=== PATIENT | male | born 1960 | race Caucasian/White ===

== ENCOUNTER 2016-06-30 19:06 | Inpatient (IN) | payer OTHER, SELFPAY ==
--- NOTE | ~2016-06-30 | PN ---
Unit #: [id number] #: [id number] Patient: MEMO THIBODEAUX [id number] [facility] [address] [place] [address] [id number] I MR#: [id number] NAME: MEMO THIBODEAUX. ROOM: P114 Age: 55 Sex: M Admission Date: 06/30/2016 : 1960 Attending Physician: Davidson Martins M.D. Admitting Physician: Davidson Martins M.D. Primary Care Physician: Nato Doctor Not In System [facility] PROGRESS NOTES DATE 07/20/2016 DISCUSSION The patient remains abed, disheveled, not attending to activities of daily living, not going to groups, with very poor p.o. intake, and severely dysphoric mood. He continues to exhibit paucity of speech and thought-blocking. The patient does list an allergy to Prozac. This medication will therefore be discontinued, and instead the patient begun on Wellbutrin to augment Zyprexa and escitalopram which are already in place. Dictated by... Davidson Martins M.D. CB/teodoro TD: 07/20/2016 14:26 JOB #: [id number] [facility] PROGRESS NOTES Page 1 of 1 X Davidson Martins MD PROGRESS NOTE
--- NOTE | ~2016-06-30 | PN ---
Unit #: [id number] #: [id number] Patient: MEMO THIBODEAUX [id number] [facility] [address] [place] [address] [id number] I MR#: [id number] NAME: MEMO THIBODEAUX. ROOM: P114 Age: 55 Sex: M Admission Date: 06/30/2016 : 1960 Attending Physician: Davidson Martins M.D. Admitting Physician: Davidson Martins M.D. Primary Care Physician: Generic Doctor Not In System [facility] PROGRESS NOTES DATE 07/15/2016 DISCUSSION The patient continues to appear very flat and disheveled but rates his mood as a "6" today and states to this physician "I'm going to kill myself." It is my feeling that he may have reached maximum benefit from inpatient psychiatric care, and we may be moving towards discharge within the next couple of days. Dictated by... Davidson Martins M.D. CB/bzg TD: 07/15/2016 15:07 JOB #: [id number] [facility] PROGRESS NOTES X Davidson Martins MD PROGRESS NOTE
--- NOTE | ~2016-06-30 | PN ---
Unit #: [id number] #: [id number] Patient: MEMO THIBODEAUX [id number] [facility] [address] [place] [address] [id number] I MR#: [id number] NAME: MEMO THIBODEAUX. ROOM: P114 Age: 55 Sex: M Admission Date: 06/30/2016 : 1960 Attending Physician: Davidson Martins M.D. Admitting Physician: Davidson Martins M.D. Primary Care Physician: Generic Doctor Not In System [facility] PROGRESS NOTES DATE 07/10/2016 DISCUSSION The patient seems a bit brighter today. He is more active within the therapeutic milieu and is more verbal in interaction with this physician, although he remains quite flat with impoverishment of speech. Perhaps this is an early sign of some improvement, however. Dictated by... Davidson Martins M.D. CB/shawna TD: 07/10/2016 16:30 JOB #: [id number] [facility] PROGRESS NOTES X Davidson Martins MD PROGRESS NOTE
--- NOTE | ~2016-06-30 | PN ---
Unit #: [id number] #: [id number] Patient: MEMO THIBODEAUX [id number] [facility] [address] [place] [address] [id number] I MR#: [id number] NAME: MEMO THIBODEAUX. ROOM: P114 Age: 55 Sex: M Admission Date: 06/30/2016 : 1960 Attending Physician: Davidson Martins M.D. Admitting Physician: Davidson Martins M.D. Primary Care Physician: Generic Doctor Not In System [facility] PROGRESS NOTES DATE OF SERVICE 07/16/2016 DISCUSSION The patient remains tremendously depressed, disorganized in his thinking, dysphoric, flat, and continues to express hopelessness. At this point, it is my feeling that we are obligated to consult with Dr. Tipton to see if he feels as though the patient could benefit from electroconvulsive therapy. The patient is virtually unable to process any information in his current state of disorganization. Dictated by... Davidson Martins M.D. CB/teodoro TD: 07/17/2016 09:20 JOB #: [id number] [facility] PROGRESS NOTES X Davidson Martins MD PROGRESS NOTE
--- NOTE | ~2016-06-30 | PN ---
Unit #: [id number] #: [id number] Patient: MEMO THIBODEAUX [id number] [facility] [address] [place] [address] [id number] I MR#: [id number] NAME: MEMO THIBODEAUX. ROOM: P114 Age: 55 Sex: M Admission Date: 06/30/2016 : 1960 Attending Physician: Davidson Martins M.D. Admitting Physician: Davidson Martins M.D. Primary Care Physician: Generic Doctor Not In System [facility] PROGRESS NOTES DATE 07/08/2016 DISCUSSION The patient is out of his room and does speak to this physician today stating that he is "ready to go home." In spite of this, he remains bizarre in his interactions with peers and staff and has been occasionally violent. I have increased the Seroquel to 50 mg t.i.d. and as per recommendation of family we will watch the patient for med cheeking. Dictated by... Davidson Martins M.D. CB/teodoro TD: 07/08/2016 14:53 JOB #: [id number] [facility] PROGRESS NOTES X Davidson Martins MD PROGRESS NOTE
--- NOTE | ~2016-06-30 | PN ---
Unit #: [id number] #: [id number] Patient: MEMO THIBODEAUX [id number] [facility] [address] [place] [address] [id number] I MR#: [id number] NAME: MEMO THIBODEAUX. ROOM: P114 Age: 55 Sex: M Admission Date: 06/30/2016 : 1960 Attending Physician: Davidson Martins M.D. Admitting Physician: Davidson Martins M.D. Primary Care Physician: Generic Doctor Not In System [facility] PROGRESS NOTES DATE 07/09/2016 DISCUSSION The patient is abed today sleeping soundly. There is concern on the part of this physician that his titration of Seroquel may have been too rapid and back titration may need to be considered. The patient remains so sedated. Staff reports that he has been generally compliant with meds and mendiola routine but remains bizarre in his interactions with peers and staff. Dictated by... Davidson Martins M.D. CB/shawna TD: 07/09/2016 16:42 JOB #: [id number] [facility] PROGRESS NOTES X Davidson Martins MD PROGRESS NOTE
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
--- NOTE | ~2016-06-30 | PN ---
Unit #: [id number] #: [id number] Patient: MEMO THIBODEAUX [id number] [facility] [address] [place] [address] [id number] I MR#: [id number] NAME: MEMO THIBODEAUX. ROOM: P114 Age: 55 Sex: M Admission Date: 06/30/2016 : 1960 Attending Physician: Davidson Martins M.D. Admitting Physician: Davidson Martins M.D. Primary Care Physician: Generic Doctor Not In System [facility] PROGRESS NOTES DATE 07/03/2016 DISCUSSION The patient remains virtually mute during attempted interview today stating only that he is "sick." Again, I have spoken with the patient regarding the importance of increased verbal interaction as well as interaction within therapeutic milieu. She remains seclusive to room and may need to consider room lockout as the patient remains secluded in his private room. Dictated by... Davidson Martins M.D. CB/teodoro TD: 07/03/2016 12:55 JOB #: [id number] [facility] PROGRESS NOTES X Davidson Martins MD PROGRESS NOTE
--- NOTE | ~2016-06-30 | PN ---
Unit #: [id number] #: [id number] Patient: MEMO THIBODEAUX [id number] [facility] [address] [place] [address] [id number] I MR#: [id number] NAME: MEMO THIBODEAUX. ROOM: P114 Age: 55 Sex: M Admission Date: 06/30/2016 : 1960 Attending Physician: Davidson Martins M.D. Admitting Physician: Davidson Martins M.D. Primary Care Physician: Nato Doctor Not In System [facility] PROGRESS NOTES DATE 07/04/2016 DISCUSSION The patient is abed today and again mute during attempted interview. 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 I will discontinue this medication and in its place begin Mirapex 0.25 mg twice daily to address bipolar depression. Dictated by... Davidson Martins M.D. CB/olivia TD: 07/05/2016 04:04 JOB #: [id number] [facility] PROGRESS NOTES X Davidson Martins MD PROGRESS NOTE
--- NOTE | ~2016-06-30 | PN ---
Unit #: [id number] #: [id number] Patient: MEMO THIBODEAUX [id number] [facility] [address] [place] [address] [id number] I MR#: [id number] NAME: MEMO THIBODEAUX. ROOM: P114 Age: 55 Sex: M Admission Date: 06/30/2016 : 1960 Attending Physician: Davidson Martins M.D. Admitting Physician: Davidson Martins M.D. Primary Care Physician: Generic Doctor Not In System [facility] PROGRESS NOTES DATE 07/21/2016 DISCUSSION The patient at last begins to show perhaps a bit of response to initiation of Wellbutrin and Zyprexa. He is a tat brighter today, more verbal, but remains very very flat, but he is active within the therapeutic milieu and has emerged from his state of semi-catatonia. Dictated by... Davidson Martins M.D. CB/bzg TD: 07/21/2016 14:38 JOB #: [id number] [facility] PROGRESS NOTES Page 1 of 1 X Davidson Martins MD X PROGRESS NOTE
--- NOTE | ~2016-06-30 | PN ---
Unit #: [id number] #: [id number] Patient: MEMO THIBODEAUX [id number] [facility] [address] [place] [address] [id number] I MR#: [id number] NAME: MEMO THIBODEAUX. ROOM: P114 Age: 55 Sex: M Admission Date: 06/30/2016 : 1960 Attending Physician: Davidson Martins M.D. Admitting Physician: Davidson Martins M.D. Primary Care Physician: Generic Doctor Not In System [facility] PROGRESS NOTES DATE 07/26/2016 DISCUSSION The patient's slow but steady (1)__ improvement seems to be continuing. He is brighter today and reporting reduced suicidal ideation. He is more verbal than this physician has seen during his previous hospitalization and is more attending to activities of daily living. His progress is encouraging. Dictated by... Davidson Martins M.D. CB/olivia TD: 07/27/2016 00:46 JOB #: [id number] [facility] PROGRESS NOTES Page 1 of 1 X Davidson Martins MD PROGRESS NOTE
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
--- NOTE | ~2016-06-30 | PN ---
Unit #: [id number] #: [id number] Patient: MEMO THIBODEAUX [id number] [facility] [address] [place] [address] [id number] I MR#: [id number] NAME: MEMO THIBODEAUX. ROOM: P114 Age: 55 Sex: M Admission Date: 06/30/2016 : 1960 Attending Physician: Davidson Martins M.D. Admitting Physician: Davidson Martins M.D. Primary Care Physician: Generic Doctor Not In System [facility] PROGRESS NOTES DATE 07/17/2016 DISCUSSION The patient is abed today. He is extremely flat with impoverishment of speech and thought blocking evident. I have spoken with the patient today regarding possible initiation of electroconvulsive therapy. At this point, the patient is hesitant to consider this treatment plan but I will continue to discuss it with him as of this point. He is exhibiting little in the way of response to his aggressive pharmacotherapy. Dictated by... Davidson Martins M.D. CB/shawna TD: 07/17/2016 15:01 JOB #: [id number] [facility] PROGRESS NOTES X Davidson Martins MD PROGRESS NOTE
--- NOTE | ~2016-06-30 | PN ---
Unit #: [id number] #: [id number] Patient: MEMO THIBODEAUX [id number] [facility] [address] [place] [address] [id number] I MR#: [id number] NAME: MEMO THIBODEAUX. ROOM: P114 Age: 55 Sex: M Admission Date: 06/30/2016 : 1960 Attending Physician: Davidson Martins M.D. Admitting Physician: Davidson Martins M.D. Primary Care Physician: Nato Doctor Not In System [facility] PROGRESS NOTES DATE 07/19/2016 DISCUSSION The patient is once again noted to be abed with significant thought blocking. He is disheveled, not attending to activities of daily living, not leaving his room, not going to groups. He has refused to even discuss ECT with Dr. Tipton. Clearly the pharmacotherapeutic interventions undertaken this far, i.e. continuation of Latuda, initiation of Mirapex and then Seroquel have been entirely unsuccessful and the patient is not willing to consider electroconvulsive therapy. He remains previously dangerous to himself secondary to his severely depressed mood, thought blocking and reduced p.o. intake and reduction of activities of daily living and continues to state only to answer only monosyllabically to selecting questions. We will discontinue Seroquel and Mirapex today and begin a trial of olanzapine and fluoxetine in hopes of addressing the patient's severe depressive symptoms. Dictated by... Davidson Martins M.D. CB/olivia TD: 07/19/2016 18:26 JOB #: [id number] [facility] PROGRESS NOTES Page 1 of 1 X Davidson Martins MD X PROGRESS NOTE
--- NOTE | ~2016-06-30 | PN ---
Unit #: [id number] #: [id number] Patient: MEMO THIBODEAUX [id number] [facility] [address] [place] [address] [id number] I MR#: [id number] NAME: MEMO THIBODEAUX. ROOM: P114 Age: 55 Sex: M Admission Date: 06/30/2016 : 1960 Attending Physician: Davidson Martins M.D. Admitting Physician: Davidson Martins M.D. Primary Care Physician: Nato Doctor Not In System [facility] PROGRESS NOTES DATE 07/25/2016 DISCUSSION The patient appears improved today. He appears to be responding well to room lockout and is dressed. He is showered and is a bit brighter. His progress is encouraging. Dictated by... Davidson Martins M.D. CB/olivia TD: 07/26/2016 02:01 JOB #: [id number] [facility] PROGRESS NOTES Page 1 of 1 X Davidson Martins MD X PROGRESS NOTE
--- NOTE | ~2016-06-30 | PN ---
Unit #: [id number] #: [id number] Patient: MEMO THIBODEAUX [id number] [facility] [address] [place] [address] [id number] I MR#: [id number] NAME: MEMO THIBODEAUX. ROOM: P114 Age: 55 Sex: M Admission Date: 06/30/2016 : 1960 Attending Physician: Davidson Martins M.D. Admitting Physician: Davidson Martins M.D. Primary Care Physician: Nato Doctor Not In System [facility] PROGRESS NOTES DATE 07/23/2016 DISCUSSION The patient is again abed today and is virtually mute during attempted interview though he does manage a couple of monosyllabic answers. I have confronted the patient gently today regarding his lack of participation within the therapeutic milieu, and we will order room lockout from AA up to 7 p.m. so that the patient will be more likely to participate within therapeutic milieu further. I plan on preventing the patient from wearing hospital scrubs insisting that he wear his own clothing and attend to activities of daily living. The patient again remains extremely dysphoric, flat, disorganized, and continues to exhibit disorganization and blocking of thought. He continues to endorse hopelessness and positive thoughts of suicide. Dictated by... Davidson Martins M.D. CB/teodoro TD: 07/23/2016 14:55 JOB #: [id number] [facility] PROGRESS NOTES Page 1 of 1 X Davidson Martins MD X PROGRESS NOTE
--- NOTE | ~2016-06-30 | CO ---
Unit #: [id number] #: [id number] Patient: MEMO THIBODEAUX [id number] [place] [address] [id number] I MR#: [id number] NAME: MEMO THIBODEAUX. ROOM: P114 Age: 55 Sex: M Admission Date: 06/30/2016 : 1960 Attending Physician: Davidson Martins M.D. Primary Care Physician: Nato Doctor Not In System Consultation Date: 07/19/2016 CONSULTATION REPORT REASON FOR CONSULT To evaluate the appropriateness of electroconvulsive therapy. HISTORY OF PRESENT ILLNESS The patient is a 55-year-old gentleman who had taken an overdose of Tylenol and was subsequently admitted to [facility]. At time of admission he was taking the medications Latuda and Lexapro for depression with a presumptive diagnosis of bipolar disorder. The patient has pretty profound psychomotor retardation, poor focus and concentration, loss of interest in activities, difficulty with memory, shortness of attention span, does not seem to be getting much rest with his sleep though he does pretty much stay in his bed all day. Even after 20 days of admission his presentation appears to be about the same as it was when he was first admitted. The patient does not really respond to any of my questions. His verbal response was very slow and often just in one word answers of I don't know or yes or no. The patient denies any suicidal thoughts or ideation. However having said that he does not really express much of internal feelings at all on my evaluation. PAST PSYCHIATRIC HISTORY He has been at [facility] now for 20 days. He has been seen at the hospital in the past multiple psychiatric admissions in the past. The patient has never had ECT in the past. There does seem to be a family history of alcohol dependence but there is no reported history of the patient himself having a history of alcohol abuse. PAST MEDICAL HISTORY The patient has history of hypertension, asthma, gastroesophageal reflux disease and seasonal allergies. ALLERGIES The patient is allergic to Abilify, Prozac, and Haldol. REVIEW OF SYSTEMS The patient does not really respond to my questions but he does not seem to have any apparent complaints of physical symptoms. PHYSICAL EXAMINATION The patient's physical is performed, charted and noted by the house physician at the time of his arrival on July 01, 2016. MENTAL STATUS EXAM On exam the patient is lying in bed, eyes closed, profound psychomotor retardation is noted, very slow rhythm, rate, volume of speech. He does Unit #: [id number] #: [id number] Patient: MEMO THIBODEAUX not really respond very well to questions with answers that go much beyond yes, no and I don't know. The patient's mood appears to be very flat and depressed though he does not really express any symptoms. His affect is very flat and seems to be congruent with a profoundly depressed mood. Based on his verbal response to questions that can be deduced that his thought process is pretty slow but there is no evidence of psychosis noted on evaluation today. It is difficult to assess memory functioning because he does not really respond to questions, so orientation is not obtained at this point. Insight and judgment seems to be pretty profoundly affected by his psychiatric condition. Patient is not expressing any suicidal or homicidal ideation but he was admitted to the hospital after an overdose of Tylenol. Strengths include access to care, barriers of chronic psychiatric illness and depression that seems to be unremittent in spite of medication intervention. FAMILY HISTORY AND SOCIAL HISTORY Please see previous hospital records for full details. DISCHARGE DIAGNOSIS AXIS I: Depression, current symptoms severe. Rule out bipolar disorder. AXIS II: Deferred. AXIS III: Nothing acute. PLAN 1. It is really impossible to consent this patient for ECT at this time so I will just hold back and wait for the primary team to decide what they want to do with him. It certainly is a good candidate for ECT but we do need to have some consent before we get him started for ECT treatments. 2. No additional recommendations. Dictated by... Lawson Tipton M.D. TRINY/shawna TD: 07/20/2016 15:29 JOB #: [id number] CONSULTATION REPORT Page 1 of 1 X Lawson Tipton MD <ELECTRONICALLY SIGNED> 12/21/16 1702 X CONSULTATION REPORT
--- NOTE | ~2016-06-30 | PN ---
Unit #: [id number] #: [id number] Patient: MEMO THIBODEAUX [id number] [facility] [address] [place] [address] [id number] I MR#: [id number] NAME: MEMO THIBODEAUX. ROOM: P114 Age: 55 Sex: M Admission Date: 06/30/2016 : 1960 Attending Physician: Davidson Martins M.D. Admitting Physician: Davidson Martins M.D. Primary Care Physician: Generic Doctor Not In System [facility] PROGRESS NOTES DATE 07/14/2016 DISCUSSION The patient remains extremely flat with thought-blocking and paranoia very much in evidence. He continues to endorse positive suicidal ideation but states "I don't want to kill myself." We will continue the 300 mg Seroquel XR dose for now with further medication changes to be considered including the possible initiation of electroconvulsive therapy. Dictated by... Davidson Martins M.D. CB/teodoro TD: 07/14/2016 14:12 JOB #: [id number] [facility] PROGRESS NOTES X Davidson Martins MD PROGRESS NOTE
--- NOTE | ~2016-06-30 | PN ---
Unit #: [id number] #: [id number] Patient: MEMO THIBODEAUX [id number] [facility] [address] [place] [address] [id number] MR#: [id number] NAME: MEMO THIBODEAUX. ROOM: P114 Age: 55 Sex: M Admission Date: 06/30/2016 : 1960 Attending Physician: Davidson Martins M.D. Admitting Physician: Davidson Martins M.D. Primary Care Physician: Nato Doctor Not In System [facility] PROGRESS NOTES DATE 07/13/2016 DISCUSSION The patient remains floridly depressed and quite psychotic. He continues to complain of thought blocking, confusion and poor sleep. Upward titration of Seroquel XR will continue. His dose will be increased to 300 mg daily. Dictated by... Davidson Martins M.D. ANA M/shawna TD: 07/13/2016 16:51 JOB #: [id number] [facility] PROGRESS NOTES X Davidson Martins MD PROGRESS NOTE
--- NOTE | ~2016-06-30 | PN ---
Unit #: [id number] #: [id number] Patient: MEMO THIBODEAUX [id number] [facility] [address] [place] [address] [id number] I MR#: [id number] NAME: MEMO THIBODEAUX. ROOM: P114 Age: 55 Sex: M Admission Date: 06/30/2016 : 1960 Attending Physician: Davidson Martins M.D. Admitting Physician: Davidson Martins M.D. Primary Care Physician: Generic Doctor Not In System [facility] PROGRESS NOTES DATE 07/24/2016 DISCUSSION The patient is now on room lockout to encourage his participation within the therapeutic milieu. He is dressed in clothing today and is watching television show. He is a bit more verbally interactive but continues to express hopelessness and exhibit thought blocking and disorganization of thought. We continue current aggressive pharmacotherapy. Dictated by... Davidson Martins M.D. CB/shawna TD: 07/24/2016 15:29 JOB #: [id number] [facility] PROGRESS NOTES Page 1 of 1 X Davidson Martins MD X PROGRESS NOTE
--- NOTE | ~2016-06-30 | PN ---
Unit #: [id number] #: [id number] Patient: MEMO THIBODEAUX [id number] [facility] [address] [place] [address] [id number] I MR#: [id number] NAME: MEMO THIBODEAUX. ROOM: P114 Age: 55 Sex: M Admission Date: 06/30/2016 : 1960 Attending Physician: Davidson Martins M.D. Admitting Physician: Davidson Martins M.D. Primary Care Physician: Generic Doctor Not In System [facility] PROGRESS NOTES DATE 07/22/2016 DISCUSSION The patient has had a step back. He is more dysphoric with more thought-blocking and paucity of speech when seen today. He did, however, take a shower earlier in the day. I have encouraged the patient to increase his participation within the therapeutic milieu as well as his activities of daily living which is (1) ___ lacking at this time. The patient continues to endorse positive hopelessness and suicidal ideation. Dictated by... Davidson Martins M.D. ANA M/teodoro TD: 07/22/2016 15:05 JOB #: [id number] [facility] PROGRESS NOTES Page 1 of 1 X Davidson Martins MD X PROGRESS NOTE
--- NOTE | ~2016-06-30 | PN ---
Unit #: [id number] #: [id number] Patient: MEMO THIBODEAUX [id number] [facility] [address] [place] [address] [id number] MR#: [id number] NAME: MEMO THIBODEAUX. ROOM: P114 Age: 55 Sex: M Admission Date: 06/30/2016 : 1960 Attending Physician: Davidson Martins M.D. Admitting Physician: Davidson Martins M.D. Primary Care Physician: Generic Doctor Not In System [facility] PROGRESS NOTES DATE 07/18/2016 DISCUSSION The patient remains a bed with extreme thought blocking and psychomotor retardation, dishevelment and lack of attendance to activities of daily living. He remains ambivalent regarding electroconvulsive therapy but I have again spoken with the patient regarding the fact that we must do something more dramatic given his complete lack of response to treatment thus far. Dictated by... Davidson Martins M.D. CB/olivia TD: 07/18/2016 21:26 JOB #: [id number] [facility] PROGRESS NOTES X Davidson Martins MD PROGRESS NOTE
--- NOTE | ~2016-06-30 | PN ---
Unit #: [id number] #: [id number] Patient: MEMO THIBODEAUX [id number] [facility] [address] [place] [address] [id number] MR#: [id number] NAME: MEMO THIBODEAUX. ROOM: P114 Age: 55 Sex: M Admission Date: 06/30/2016 : 1960 Attending Physician: Davidson Martins M.D. Admitting Physician: Davidson Martins M.D. Primary Care Physician: Nato Doctor Not In System [facility] PROGRESS NOTES DATE 07/11/2016 DISCUSSION We continue aggressive pharmacotherapy with the patient. He continues to exhibit significant thought blocking and reports ongoing auditory hallucinations as well as ongoing suicidal ideation. He continues to present with a bizarre flatten affect but does appear slightly improved over the past couple of days. Dictated by... Davidson Martins M.D. CB/olivia TD: 07/11/2016 20:51 JOB #: [id number] [facility] PROGRESS NOTES X Davidson Martins MD PROGRESS NOTE
--- NOTE | ~2016-06-30 | PN ---
Unit #: [id number] #: [id number] Patient: MEMO THIBODEAUX [id number] [facility] [address] [place] [address] [id number] MR#: [id number] NAME: MEMO THIBODEAUX. ROOM: P114 Age: 55 Sex: M Admission Date: 06/30/2016 : 1960 Attending Physician: Davidson Martins M.D. Admitting Physician: Davidson Martins M.D. Primary Care Physician: Generic Doctor Not In System [facility] PROGRESS NOTES DATE 07/12/2016 DISCUSSION The patient appears significantly worse today with continued thought blocking, disorganization of though and dysphoric mood. He continues to endorse hopelessness and positive suicidal ideation when seen today. We will go ahead with upward titration of the patient's Seroquel dose, 200 mg total dose daily. Dictated by... Davidson Martins M.D. CB/elizabeth TD: 07/12/2016 15:15 JOB #: [id number] [facility] PROGRESS NOTES X Davidson Martins MD PROGRESS NOTE
--- NOTE | ~2016-06-30 | HP ---
Unit #: [id number] #: [id number] Patient: MEMO THIBODEAUX [id number] [place] [address] [id number] MR#: [id number] NAME: MEMO THBIODEAUX. ROOM: P114 Age: 55 Sex: M Admission Date: 06/30/2016 : 1960 Attending Physician: Davidson Martins M.D. Admitting Physician: Davidson Martins M.D. Primary Care Physician: Generic Doctor Not In System HISTORY AND PHYSICAL HISTORY OF PRESENT ILLNESS Memo is a 55-year-old male admitted on 07/01/[address] [place] [address] for attempted overdose on Tylenol and paranoia. PAST MEDICAL HISTORY 1. Hypertension 2. Asthma 3. Gastroesophageal reflux disease 4. Seasonal allergies PAST SURGICAL HISTORY Back and neck surgery however he is unsure why he had these. SOCIAL HISTORY No tobacco or alcohol use. He does report a history of marijuana use. He is currently and living alone. FAMILY HISTORY Noncontributory. REVIEW OF SYSTEMS CONSTITUTIONAL: No fever or chills. HEENT: Denies any sore throat, ear pain or runny nose. CARDIOVASCULAR: Denies chest pain, irregular heart rhythm or palpitations. CHEST: Denies shortness of breath or cough. No hemoptysis. GASTROINTESTINAL: Denies nausea, vomiting, diarrhea or chronic constipation. ENDOCRINE: Denies history of increased thirst or urination. No recent significant weight loss or gain. GENITOURINARY: Denies dysuria, frequency, or hematuria. SKIN: Denies any rashes. HEMATOLOGIC: Denies history of increased bleeding or bruising. MUSCULOSKELETAL: Denies any hot, swollen joints. No generalized muscle pain. NEUROLOGIC: Denies problems with vision or speech. No frequent, severe headaches. No numbness, tingling or weakness in any extremities. Denies loss of bladder or bowel control. CURRENT MEDICATIONS 1. Trazodone 2. Latuda Unit #: [id number] #: [id number] Patient: MEMO THIBODEAUX 3. Proventil 4. Cardura 5. Flonase 6. Multivitamin 7. Fish oil 8. Claritin 9. Pepcid 10. Colace 11. Lexapro ALLERGIES Abilify, Prozac and Haldol PHYSICAL EXAMINATION GENERAL: Alert, oriented, in no acute distress. VITAL SIGNS: Blood pressure 137/89, heart rate 93, respirations 20, temperature 98.2. HEIGHT: 5'11" WEIGHT: 177 pounds. SKIN: Warm and dry without rash or lesion. HEENT: Normocephalic. TMs not viewed. Oral and nasal passages clear. Conjunctivae clear. PERRLA. EOMs intact. NECK: Supple without lymphadenopathy or thyromegaly. HEART: Regular rate and rhythm without murmur. LUNGS: Clear. ABDOMEN: Soft, nontender, without masses or hepatosplenomegaly. : Not done. EXTREMITIES: No evidence of cyanosis, clubbing or edema. Moves all without focal deficit. NEUROLOGICAL: Grossly within normal limits. Cranial Nerves: II: Visual barrow are intact. III, IV AND : Extraocular movements are intact. Pupils are equal, round and reactive to light. V: Facial sensation is grossly normal. VII: Facial movements and expression are normal. VIII: Auditory acuity grossly intact. IX, X: Uvula is midline. Phonation is normal. XI: Patient shrugs shoulders and turns head normally. XII: Tongue protrudes in the midline. Sensory and Motor Function: Sensory and motor sensation is grossly normal. Motor: moves all extremities well. Coordination: Gait is normal. Deep Tendon Reflexes: Intact. IMPRESSION 1. Psychiatric admission. 2. Asthma. 3. Gastroesophageal reflux disease. 4. Seasonal allergies. 5. Hypertension. RECOMMENDATIONS Psychiatric, per psychiatrist. MEDICAL: I see no contraindications to participating in facility's activities. MEDICAL PROGNOSIS Good. MEDICAL CONDITION Unit #: [id number] #: [id number] Patient: MEMO THIBODEAUX Stable. Dictated by... Lottie Escudero/olivia TD: 07/01/2016 19:36 JOB #: [id number] HISTORY AND PHYSICAL X STACIE ARCE APRN HISTORY AND PHYSICAL
--- NOTE | ~2016-06-30 | PN ---
Unit #: [id number] #: [id number] Patient: MEMO THIBODEAUX [id number] [facility] [address] [place] [address] [id number] I MR#: [id number] NAME: MEMO THIBODEAUX. ROOM: P114 Age: 55 Sex: M Admission Date: 06/30/2016 : 1960 Attending Physician: Davidson Martins M.D. Admitting Physician: Davidson Martins M.D. Primary Care Physician: Generic Doctor Not In System [facility] PROGRESS NOTES DATE 07/02/2016 DISCUSSION The patient is abed today and is again essentially mute during attempted interview. He remains seclusive to room and we remain very concerned regarding the patient's safety given his refusal to comply with attempted interview and the events which led to hospitalization. Dictated by... Davidson Martins M.D. CB/shawna TD: 07/02/2016 17:48 JOB #: [id number] [facility] PROGRESS NOTES X Davidson Martins MD PROGRESS NOTE
--- NOTE | ~2016-06-30 | DS ---
Unit #: [id number] #: [id number] Patient: MEMO THIBODEAUX [id number] [facility] [address] [place] [address] [id number] MR#: [id number] NAME: MEMO THIBODEAUX. ROOM: P114 Age: 55 Sex: M Admission Date: 06/30/2016 : 1960 Discharge Date: 07/27/2016 Attending Physician: Davidson Martins M.D. Primary Care Physician: Generic Doctor Not In System DISCHARGE SUMMARY REASON FOR ADMISSION The patient is a 55-year-old white male, admitted in a state of severe bipolar depression. HOSPITAL COURSE The patient was admitted to the [address] [place] [address] unit and placed on suicide precautions. He was initially continued on previously prescribed medications including trazodone, Latuda, Proventil, Cardura, Flonase, multivitamin, fish oil, Claritin, Pepcid, Colace, and Lexapro. The patient showed little response to medication as they were restarted. There was some questions as to the patient's compliance to these medications outside the hospital, particularly given the exacerbating expense of Latuda and his inability to afford the medication. Accordingly, this medication was discontinued and the patient again instead begun on Zyprexa 5 mg at h.s. in the hope that this medication would act in concert with the patient's Lexapro to address his symptoms of severe treatment-resistant depression in the context of a bipolar spectrum disorder. This physician thought that the patient might be a good candidate for electroconvulsive therapy as there were multiple episodes during this hospitalization where he verged on absolute catatonia. Unfortunately, the patient was unwilling to consider this treatment option. Wellbutrin was added to the patient's medication regimen on 07/21/2016. The patient began to show some mild improvement at that point, but the step which seems to have been most successful in helping the patient improve with the decision made on the part of this physician to lock the patient out of his room from 8:00 a.m. to 7:00 p.m. to encourage participation within the therapeutic milieu and discouraged isolativeness to room. The patient blossomed considerably during this period of time with brightening of affect, more spontaneous speech, and denial of suicidal ideation. By 07/27/2016, the patient was in brighter spirits, though he remained a bit flat. He requested discharge and it was so ordered. FINAL DIAGNOSES Bipolar disorder, most recent episode depressed with psychotic features; benign prostatic hypertrophy; environmental allergies; gastroesophageal reflux disease. DISPOSITION ON DISCHARGE The patient is discharged on the following medications; trazodone 50 mg at h.s. p.r.n. insomnia, Lexapro 20 mg daily for depression, Zyprexa 5 mg at h.s. for mood stabilization, Wellbutrin XL 150 mg daily for depression, Proventil HFA 2 puffs q.4 hours p.r.n. shortness of air, Cardura 1 mg at Unit #: [id number] #: [id number] Patient: MEMO THIBODEAUX bedtime for BPH, Flonase 2 sprays q.a.m. for environmental allergies, multivitamin 1 daily for nutritional supplementation, fish oil 1000 mg q.a.m. for nutritional supplementation, Claritin 10 mg once daily for environmental allergies, Pepcid 20 mg q.a.m. for GERD, Colace 100 mg b.i.d. for constipation. DISCHARGE INSTRUCTIONS No dietary or physical restrictions were placed upon the patient at the time of discharge. FOLLOWUP He will follow up through the auspices of [facility] where he has an appointment on the day following discharge from this facility. PROGNOSIS His prognosis is considered fair. Dictated by... Davidson Martins M.D. CB/parmjit TD: 07/28/2016 03:22 JOB #: [id number] DISCHARGE SUMMARY Page 1 of 1 X Davidson Martins MD X DISCHARGE SUMMARY
--- NOTE | ~2016-06-30 | A ---
[facility] Nutrition Therapy DATE: 07/16/16 Patient: MEMO THIBODEAUX Physician: HOOD Address: [address] Room/Bed: [address], Zip: [place] [address] Admit Date: 06/30/16 Date of : [birth year] Height: 5 11 Weight: [id number] NUTRITIONAL ASSESSMENT: REASON: LOS PATIENT ADMITTED FOR OD ATTEMPT AND PARANOIA PMH: HTN, ASTHMA, GERD Anthropometrics: HT: 5'11", WT: 177#, BMI: 24.7 Labs: REVIEWED, NOTHING SIGNIFICANT Meds: SEROQUEL, DESYREL, MVI, FISH OIL Assessment: CHART REVIEWED, EVENTS NOTED. PATIENT IS A 55 Y/O MALE ADMITTED FOR ATTEMPTED OD AND PARANOIA. PATIENT CURRENTLY LIVES ALONE, IS ON DISABILITY, AND DENIES SUBSTANCE ABUSE. UPON ADMIT PATIENT WAS UNABLE TO ANSWER QUESTIONS APPROPRIATELY OR REFUSED TO ANSWER THEM. PATIENT CONTINUES TO EXHIBIT SOME PARANOIA AND SI, HAS SOME CONFUSION AT TIMES, AND HAS BEEN GUARDED AND ISOLATIVE. PATIENT ALSO HAD POR COMPLIANCE WITH MEDICATIONS PRIOR TO ADMIT. NURSING REPORTS CONSISTENTLY GOOD PO INTAKES. PATIENT'S BMI IS WITHIN A HEALTHY RANGE OF 19-25. CURRENT PSYCH MEDS MAY CAUSE AND INCREASE IN WEIGHT AND APPETITE. THERE ARE NO SKIN OR GI ISSUES NOTED ATT. PATIENT IS ON A REGULAR DIET. Dx: NO NUTRITION DX Intervention: 1. REGULAR DIET, 2. MEDS PER MD, 3. PSYCH Monitoring, Evaluation and Goals: 1. ADEQUATE PO INTAKES >50% OF MEALS 2. PREVENT, CORRECT MICRO/MACRO NUTRIENT DEFICIENCIES MONITOR: WEIGHTS, LABS, PO/FLUID INTAKES Recommendations: 1. CONTINUE REGULAR DIET TOLERATED 2. ENCOURAGE ADEQUATE PO AND FLUID INTAKES RD TO F/U PER PROTOCOL AND PRN R/T PATIENT NOT AT NUTRITIONAL RISK ATT [facility] Nutrition Therapy DATE: 07/16/16 Patient: MEMO THIBODEAUX Physician: HOOD Address: [address] Room/Bed: [address], Zip: [place] [id number] Admit Date: 06/30/16 Date of : [birth year] Height: 5 11 Weight: [phone] Respectfully, ORTIZ TO, RD, LD [facility] cc: client file
--- NOTE | ~2016-06-30 | PA ---
Unit #: [id number] #: [id number] Patient: MEMO THIBODEAUX [id number] [place] [address] [id number] MR#: [id number] NAME: MEMO THIBODEAUX. ROOM: P114 Age: 55 Sex: M Admission Date: 06/30/2016 : 1960 Date of Assessment: 07/01/2016 Attending Physician: Davidson Martins M.D. Admitting Physician: Davidson Martins M.D. Primary Care Physician: Generic Doctor Not In System PSYCHIATRIC ASSESSMENT IDENTIFYING INFORMATION The patient is a 55-year-old white male admitted to the [address] [place] [address] following an overdose of Tylenol. INFORMANT(S) Chart, patient refuses to comply with interview. CHIEF COMPLAINT None. HISTORY OF PRESENT ILLNESS The patient is a 55-year-old white male admitted following ingestion of Tylenol. He was treated at [facility] and sent to this facility. The patient is currently on a medication regimen which appears to be consistent with a diagnosis of bipolar spectrum disorder though the patient does not provide history during today's attempted interview. He is currently prescribed Latuda and Lexapro. The patient's family has reported that he has been increasingly isolative, not attending to activities of daily living and possibly less than optimally compliant with prescribed medications. When seen today, the patient refuses to comply with interview but not in a way which is rude. He simply states that he does not wish to speak at this time. PAST PSYCHIATRIC HISTORY Cannot be obtained. FAMILY HISTORY Not obtained. SOCIAL HISTORY There is no reported use of alcohol, tobacco or street drugs. MEDICAL HISTORY Significant for a history of benign prostatic hypertrophy, environmental allergies, asthma and GERD. MEDICATION HISTORY 1. Lexapro. 2. Colace. 3. Pepcid. 4. Claritin. 5. Fish oil. 6. Multivitamin. Unit #: [id number] #: [id number] Patient: MEMO THIBODEAUX 7. Flonase. 8. Cardura. 9. Proventil HFA. 10. Latuda. 11. Trazodone. ALLERGIES Abilify, Prozac, Haldol. MENTAL STATUS EXAM At this time, reveals the patient to be a well-developed, well-nourished white male appearing stated age. He is in no apparent physical distress at the time of examination. He is awake, alert, oriented in all spheres. His mood is dysphoric. His affect flat. Speech is impoverished. There are no gross deficits in memory or cognition noted though formal testing is not possible. Patient does not answer queries regarding suicidal ideation, psychotic symptoms, etc. ASSETS AND LIABILITIES Patient's assets, supportive family. Liabilities, poor compliance with treatment. ADMITTING DIAGNOSES 1. Bipolar disorder, depressed phase. 2. Other medical issues as noted previously. PSYCHIATRIC PLAN/TREATMENT GOALS The patient remains hospitalized for safety and stabilization. For the time being, will continue previously prescribed medications but will consider medication changes as the patient's treatment course progresses. ESTIMATED LENGTH OF STAY Five to seven days with followup to take place through the auspices of the patient's previous treating psychiatrist in the [facility]. Dictated by... Davidson Martins M.D. ANA M/shawna TD: 07/01/2016 15:49 JOB #: [id number] PSYCHIATRIC ASSESSMENT X Davidson Martins MD X PSYCHIATRIC ASSESSMENT
--- NOTE | ~2016-06-30 | PN ---
Unit #: [id number] #: [id number] Patient: MEMO THIBODEAUX [id number] [facility] [address] [place] [address] [id number] MR#: [id number] NAME: MEMO THIBODEAUX. ROOM: P114 Age: 55 Sex: M Admission Date: 06/30/2016 : 1960 Attending Physician: Davidson Martins M.D. Admitting Physician: Davidson Martins M.D. Primary Care Physician: Generic Doctor Not In System [facility] PROGRESS NOTES DATE 07/06/2016 DISCUSSION The patient is more awake and a bit more verbal today though he declines to discuss the circumstances leading to his hospitalization. He did require p.r.n. doses of Geodon yesterday after becoming aggressive with staff members, but overall at least is out of his bed and speaking now which is at least a sign of some mild improvement. Dictated by... Davidson Martins M.D. CB/teodoro TD: 07/06/2016 15:00 JOB #: [id number] [facility] PROGRESS NOTES X Davidson Martins MD PROGRESS NOTE
[2016-07-01 12:31] LABS: BASOPHIL% 0.2 % (0-2.5); EOSINOPHIL% 0.2 % (0.0-7.0); HEMATOCRIT 42.6 % (38.0-50.0); HEMOGLOBIN 14.7 gm/dL (13.0-16.0); LYMPHOCYTE# 0.9 X10e3 (1.0-3.5); LYMPHOCYTE% 13.2 % (17.0-45.0); MEAN CELL VOLUME 84.6 FL (83-96); MEAN CORPUSCULAR HEMOGLOBIN 29.2 PG (28-34); MEAN CORPUSCULAR HGB CONC 34.4 g/dL (30-36); MEAN PLATELET VOLUME 8.4 FL (6.5-11.5); MONOCYTE# 0.4 X10e3 (0-1.0); MONOCYTE% 5.9 % (3.0-12.0); NEUTROPHIL# 5.8 X10e3 (1.5-7.1); NEUTROPHIL% 80.5 % (40-75); PLATELET COUNT 146 X10e3 (140-420); RED BLOOD COUNT 5.03 X10e (3.90-5.60); RED CELL DISTRIBUTION WIDTH 13.6 % (11.0-15.5); WHITE BLOOD COUNT 7.2 X10e3 (4.0-10.5)
[2016-07-01 12:33] LABS: DIFF IND NO
[2016-07-01 13:12] LABS: THYROID STIMULATING HORMONE 0.51 uIU/ml (0.34-5.60)
[2016-07-01 13:14] LABS: ALBUMIN SERUM 3.9 g/dL (3.5-5.0); ALKALINE PHOSPHATASE 47 U/L (32-92); ALT (SGPT) 18 U/L (10-40); AST (SGOT) 23 U/L (10-42); BILIRUBIN,TOTAL 0.7 mg/dL (0.2-2.0); BLOOD UREA NITROGEN 12 mg/dL (9-23); CALCIUM SERUM 9.2 mg/dL (8.4-10.2); CARBON DIOXIDE 28 mmol/L (22-31); CHLORIDE 103 mmol/L (100-111); CREATININE SERUM 1.1 mg/dL (0.6-1.4); GLOM FILT RATE Estimated ABOVE60 mL/min (>60); GLUCOSE FASTING 147 mg/dL (70-110); POTASSIUM 3.3 mmol/L (3.5-5.1); PROTEIN TOTAL SERUM 6.1 g/dL (6.0-8.3); SODIUM 139 mmol/L (135-145)
[2016-07-01 13:19] LABS: FREE THYROXIN (T4) 1.36 ng/dL (0.58-1.64)
== END 2016-07-27 16:37 | disposition home or self-care (01) | DRG 885 ==
LOC: P1S 19:06 → POF 07-12 14:17 → P1S 07-12 14:20
PROVIDERS: Specialist
DX: F33.3 Major depressive disorder, recurrent, severe with psychotic symptoms (principal); I10 Essential (primary) hypertension; K21.9 Gastro-esophageal reflux disease without esophagitis; J45.909 Unspecified asthma, uncomplicated; Z88.8 Allergy status to other drugs, medicaments and biological substances
CPT/HCPCS: 80053; 84439; 84443; 85025; J1200; J1630; J2060; J3486